=== PATIENT | male | born 1995 | race Caucasian/White ===

== ENCOUNTER 2022-08-01 06:59 | Inpatient (IN) | payer OTHER ==
[2022-08-01] MEDS ORDERED: CEFAZOLIN 2 GM VIAL ONE ×2 (07:06→13:49)
[2022-08-01] MEDS ORDERED: Fentanyl 100 MCG/2 ML VIAL ONE (07:06)
[2022-08-01] MEDS ORDERED: Boostrix 0.5 ML (Tdap) VIAL (>/=7 yrs of age) ONE (07:06)
[2022-08-01 07:25] LABS: #Basophils 0.1 thou/uL (0.0-0.2); #Eosinphils 0.6 thou/uL (0.0-0.7); #Lymphocytes 4.5 thou/uL (1.20-3.40); #Monocytes 0.7 thou/uL (0.11-0.59); #Neutrophils 4.5 thou/uL (1.40-6.50); %Eosinophils 5.9 % (0.0-10.0); %Lymphocytes 43.1 % (21.0-51.0); %Monocytes 6.8 % (0.0-10.0); %Neutrophils 43.2 % (42.0-75.0); Mean Corpuscular HGB CONC 33.4 g/dL (32.0-36.0); Mean Corpuscular Hemoglobin 30.2 pg (27.0-31.0); Mean Corpuscular Volume 90.4 fl (78.0-98.0); Platelet Count 250 10x3/uL (130-400); RBC Distribution Width 11.8 % (11.5-14.5); Red Blood Cell (RBC) Count 4.97 mill/uL (4.70-6.10); White Blood Cell (WBC) Count 10.4 10x3/uL (4.8-10.8)
[2022-08-01 07:45] LABS: ALT (SGPT) 25 U/L (8-55); AST (SGOT) 38 U/L (5-34); Albumin 4.5 g/dL (3.5-5.0); Alkaline Phosphatase 62 U/L (40-110); Anion Gap 13 mmol/L (10-20); BUN (Urea Nitrogen) 17 mg/dL (8.9-20.6); Bilirubin, Total 0.6 mg/dL (0.2-1.2); Calc. Creatinine Clearance 0 mL/min (70-130); Calcium 9.2 mg/dL (7.8-10.44); Carbon Dioxide 25 mmol/L (22-29); Chloride 104 mmol/L (98-107); Estimated GFR 75; Globulin 2.6 g/dL (2.4-3.5); Glucose 134 mg/dL (70-105); Potassium 3.7 mmol/L (3.5-5.1); Protein, Total 7.1 g/dL (6.0-8.3); Sodium 138 mmol/L (136-145)
[2022-08-01] MEDS ORDERED: Morphine 4 MG/ML VIAL ONE (08:01)
[2022-08-01 08:30] LABS: Prothrombin Time 13.1 sec (12.0-14.7)
[2022-08-01 08:57] LABS: Phosphorus 3.4 mg/dL (2.3-4.7)
[2022-08-01] MEDS ORDERED: Iopamidol-370 76% 500 ML MDV (1 ML CHARGE) ONE (09:13)
[2022-08-01] MEDS ORDERED: hydrALAZINE 20 MG/ML VIAL SLOW IVP PRN (09:22)
[2022-08-01] MEDS ORDERED: Morphine 4 MG/ML VIAL SLOW IVP PRN (09:22)
[2022-08-01] MEDS ORDERED: Ondansetron PF 4 MG/2 ML Vial IVP PRN (09:22)
[2022-08-01] MEDS ORDERED: Dextrose 50% Abboject 50 ML SYRINGE SLOW IVP PRN (09:22)
[2022-08-01] MEDS ORDERED: Dextrose 5% in Water 1,000 ML IV PRN (09:22)
[2022-08-01] MEDS ORDERED: Cyclobenzaprine 10 MG TAB PO PRN (09:26)
[2022-08-01] MEDS ORDERED: Ibuprofen 800 MG TAB PO PRN (09:26)
[2022-08-01] MEDS ORDERED: traMADol HCl 50 MG TAB PO PRN ×2 (09:26)
[2022-08-01] MEDS ORDERED: Sodium Chloride 0.9% 1,000 ML IV SCH (09:30)
[2022-08-01] MEDS ORDERED: CEFAZOLIN 2 GM in Sodium Chloride 0.9% 100 ML IVPB SCH (09:45)
[2022-08-01 10:05] VITALS: BMI 27.9
[2022-08-01 10:12] LABS: SARS-CoV-2 NAA Rapid Test Not Detected (NotDetected)
[2022-08-01] MEDS ORDERED: Ibuprofen 200 MG TAB PO PRN (10:52)
[2022-08-01] MEDS: Acetaminophen 500 MG TAB PO SCH ×3 (11:00→23:16)
[2022-08-01] MEDS ORDERED: Acetaminophen 500 MG TAB ONE (11:15)
[2022-08-01 11:25] LABS: Bacteria/HPF None Seen HPF (None Seen); Bilirubin Negative (Negative); Blood, Urine 1+ (Negative); Clarity Clear (Clear); Glucose, Urine (Dipstick) Normal (Negative); Ketone, Urine Trace mg/dL (Negative); Leukocyte Negative Leu/uL (Negative); Nitrite Negative (Negative); Protein, Urine (Dipstick) Negative (Neg-Trace); RBC/HPF 0-3 HPF (0-3); Specific Gravity, Urine 1.041 (1.002-1.036); Squamous Epithelial None Seen HPF (0-3); Urobilinogen Normal mg/dL (Less than 2); WBC/HPF 0-3 HPF (0-3)
[2022-08-01] MEDS ORDERED: Dexmedetomidine 200 MCG/2 ML VIAL ONE (13:46)
[2022-08-01] MEDS ORDERED: Fentanyl 250 MCG/5 ML VIAL ONE (13:46)
[2022-08-01] MEDS ORDERED: Sodium Chloride 0.9% 100 ML ONE (13:49)
[2022-08-01] MEDS ORDERED: HYDROmorphone 0.5 MG/0.5 ML SYRINGE ONE (14:11)
[2022-08-01] MEDS ORDERED: Glycopyrrolate 0.2 MG/ML 5 ML SYRINGE ONE (14:14)
[2022-08-01] MEDS ORDERED: Ketorolac Tromethamine 30 MG/ML VIAL ONE (14:14)
[2022-08-01] MEDS ORDERED: PROPOFOL 200 MG/20 ML VIAL ONE (14:14)
[2022-08-01] MEDS ORDERED: Lidocaine 1% PF 5 ML VIAL ONE (14:14)
[2022-08-01] MEDS ORDERED: Rocuronium Bromide 10 MG/ML (10ML VIAL) ONE (14:14)
[2022-08-01] MEDS ORDERED: Dexamethasone 20 MG/5 ML VIAL ONE (14:14)
[2022-08-01] MEDS ORDERED: NEOSTIGMINE 3 MG/3 ML SYR 3 MG/3 ML SYRINGE ONE (14:14)
[2022-08-01] MEDS ORDERED: Promethazine HCl 25 MG/ML VIAL IM PRN (17:00)
[2022-08-01] MEDS ORDERED: HYDROmorphone 2 MG/ML VIAL SLOW IVP PRN (17:00)
[2022-08-01] MEDS ORDERED: Ondansetron HCl/PF 4 MG/2 ML Vial IVP PRN (17:00)
[2022-08-01] MEDS ORDERED: PACU-Morphine 4MG/ML VIAL SLOW IVP PRN (17:00)
[2022-08-01] MEDS ORDERED: fentaNYL PF 100 MCG/2 ML SYRINGE ONE (17:53)
[2022-08-01] MEDS: Gabapentin 300 MG CAP PO SCH ×2 (20:47→20:50)
[2022-08-01] MEDS: Senokot S 8.6-50 MG TAB PO SCH (20:49)
[2022-08-01] MEDS: CEFAZOLIN 2 GM in Sodium Chloride 0.9% 100 ML IVPB SCH (20:49)
[2022-08-01] MEDS: Famotidine 20 MG TAB PO SCH (20:50)
[2022-08-02] MEDS: Acetaminophen 500 MG TAB PO SCH ×4 (05:37→23:42)
[2022-08-02] MEDS: CEFAZOLIN 2 GM in Sodium Chloride 0.9% 100 ML IVPB SCH (05:38)
[2022-08-02 06:23] LABS: #Monocytes 1.1 thou/uL (0.11-0.59); #Neutrophils 8.4 thou/uL (1.40-6.50); %Basophils 0.2 % (0.0-1.0); %Eosinophils 0.1 % (0.0-10.0); %Lymphocytes 9.1 % (21.0-51.0); %Monocytes 10.2 % (0.0-10.0); %Neutrophils 80.3 % (42.0-75.0); Hemoglobin 12.8 g/dL (14.0-18.0); Mean Corpuscular HGB CONC 33.7 g/dL (32.0-36.0); Mean Corpuscular Hemoglobin 30.6 pg (27.0-31.0); Mean Corpuscular Volume 90.8 fl (78.0-98.0); Mean Platelet Volume 8.1 fL (7.4-10.4); Platelet Count 201 10x3/uL (130-400); RBC Distribution Width 11.7 % (11.5-14.5); Red Blood Cell (RBC) Count 4.19 mill/uL (4.70-6.10); White Blood Cell (WBC) Count 10.4 10x3/uL (4.8-10.8)
[2022-08-02 06:52] LABS: Anion Gap 13 mmol/L (10-20); BUN (Urea Nitrogen) 12 mg/dL (8.9-20.6); Calc. Creatinine Clearance 112 mL/min (70-130); Calcium 8.1 mg/dL (7.8-10.44); Carbon Dioxide 24 mmol/L (22-29); Chloride 107 mmol/L (98-107); Estimated GFR 82; Glucose 120 mg/dL (70-105); Magnesium 1.9 mg/dL (1.6-2.6); Potassium 4.1 mmol/L (3.5-5.1); Sodium 140 mmol/L (136-145)
[2022-08-02] MEDS ORDERED: PHOS-NAK 1 PKT PACK PO SCH (08:00)
[2022-08-02] MEDS: Gabapentin 300 MG CAP PO SCH ×3 (10:03→20:44)
[2022-08-02] MEDS: Senokot S 8.6-50 MG TAB PO SCH ×2 (10:03→20:44)
[2022-08-02] MEDS: Famotidine 20 MG TAB PO SCH ×2 (10:03→20:44)
[2022-08-02] MEDS: Loratadine 10 MG TAB PO SCH (10:03)
[2022-08-02] MEDS: Polyethylene Glycol 3350 17 GM Packet PO SCH (10:04)
[2022-08-03 06:05] LABS: #Eosinphils 0.2 thou/uL (0.0-0.7); #Lymphocytes 2.5 thou/uL (1.20-3.40); #Monocytes 0.7 thou/uL (0.11-0.59); #Neutrophils 4.9 thou/uL (1.40-6.50); %Basophils 0.3 % (0.0-1.0); %Eosinophils 2.3 % (0.0-10.0); %Lymphocytes 29.9 % (21.0-51.0); %Monocytes 8.2 % (0.0-10.0); %Neutrophils 59.3 % (42.0-75.0); Hemoglobin 12.5 g/dL (14.0-18.0); Mean Corpuscular HGB CONC 33.2 g/dL (32.0-36.0); Mean Corpuscular Hemoglobin 30.4 pg (27.0-31.0); Mean Corpuscular Volume 91.7 fl (78.0-98.0); Mean Platelet Volume 8.1 fL (7.4-10.4); Platelet Count 177 10x3/uL (130-400); RBC Distribution Width 11.8 % (11.5-14.5); White Blood Cell (WBC) Count 8.3 10x3/uL (4.8-10.8)
[2022-08-03] MEDS: Acetaminophen 500 MG TAB PO SCH ×3 (06:06→18:31)
[2022-08-03 06:26] LABS: Anion Gap 12 mmol/L (10-20); BUN (Urea Nitrogen) 12 mg/dL (8.9-20.6); Calc. Creatinine Clearance 128 mL/min (70-130); Calcium 8.3 mg/dL (7.8-10.44); Carbon Dioxide 25 mmol/L (22-29); Chloride 106 mmol/L (98-107); Estimated GFR 96; Glucose 101 mg/dL (70-105); Phosphorus 2.9 mg/dL (2.3-4.7); Potassium 3.9 mmol/L (3.5-5.1); Sodium 139 mmol/L (136-145)
[2022-08-03] MEDS: Gabapentin 300 MG CAP PO SCH ×2 (10:10→14:40)
[2022-08-03] MEDS: Loratadine 10 MG TAB PO SCH (10:10)
[2022-08-03] MEDS: Famotidine 20 MG TAB PO SCH (10:10)
[2022-08-03] MEDS: Polyethylene Glycol 3350 17 GM Packet PO SCH (10:10)
[2022-08-03] MEDS: Senokot S 8.6-50 MG TAB PO SCH (10:11)
[2022-08-03 16:43] VITALS: TEMP 98.7
[2022-08-03 20:00] VITALS: BP 136/80
== END 2022-08-03 20:49 | disposition home or self-care (01) | DRG 958 ==
LOC: ERS 06:59 → ERHOLD 09:35 → SJJU 12:07 → SURG A 12:07 → SJJU 19:10
PROVIDERS: ADMIT Surgery; ATTEND Surgery
PROC: 0PSJ04Z Reposition Left Radius with Internal Fixation Device, Open Approach (ICD-10-PCS; principal; 2022-08-01)
PROC: 0PSL04Z Reposition Left Ulna with Internal Fixation Device, Open Approach (ICD-10-PCS; 2022-08-01)
DX: S52.302B Unspecified fracture of shaft of left radius, initial encounter for open fracture type I or II (principal); S82.832B Other fracture of upper and lower end of left fibula, initial encounter for open fracture type I or II; N17.9 Acute kidney failure, unspecified; S32.039A Unspecified fracture of third lumbar vertebra, initial encounter for closed fracture; S02.19XA Other fracture of base of skull, initial encounter for closed fracture; S76.122A Laceration of left quadriceps muscle, fascia and tendon, initial encounter; S52.202B Unspecified fracture of shaft of left ulna, initial encounter for open fracture type I or II; Z20.822 Contact with and (suspected) exposure to COVID-19; S06.0X0A Concussion without loss of consciousness, initial encounter; V27.49XA Other motorcycle driver injured in collision with fixed or stationary object in traffic accident, initial encounter
CPT/HCPCS: 25560; 36415; 70450; 70486; 71045; 71260; 72125; 72170; 74177; 80048; 80053; 81003; 81015; 83605; 83735; 84100; 85025; 85610; 85730; 86850; 86900; 86901; 90471; 90715; 96374; 96375; C1713; C1874; G0390; J1100; J1170; J1650; J1885; J2270; J2704; J3010; J3490; J7050; Q9967; U0002